=== PATIENT | male | born 1970 | race Caucasian/White ===

== ENCOUNTER 2018-01-12 22:15 | Inpatient (IN) | payer MEDICAID ==
[2018-01-12 23:25] LABS: URINE MICROSCOPIC INDICATED? YES; URINE SOURCE CLEAN C
[2018-01-12 23:30] LABS: URINE BILIRUBIN NEGATIVE (NEGATIVE); URINE BLOOD NEGATIVE (NEGATIVE); URINE GLUCOSE (UA) NEGATIVE (NEGATIVE); URINE KETONE NEGATIVE (NEGATIVE); URINE LEUKOCYTE ESTERASE NEGATIVE (NEGATIVE); URINE NITRATE NEGATIVE (NEGATIVE); URINE PROTEIN NEGATIVE (NEGATIVE); URINE UROBILINOGEN 0.2 E.U./dL (0.2 - 1.0)
[2018-01-12 23:47] LABS: AMPHETAMINE URINE NEGATIVE (NEGATIVE); BARBITURATES URINE NEGATIVE (NEGATIVE); BENZODIAZEPINES QUAL URINE NEGATIVE (NEGATIVE); CANNABINOID THC NEGATIVE (NEGATIVE); COCAINE METABOLITE QUAL URINE NEGATIVE (NEGATIVE); METHADONE URINE NEGATIVE (NEGATIVE); METHAMPHETAMINES QUAL URINE NEGATIVE (NEGATIVE); OPIATES (MORPHINE) QUAL. URINE POSITIVE (NEGATIVE); PHENCYCLIDINE (PCP) URINE NEGATIVE (NEGATIVE); TRICYCLICS (TCA) QUAL. URINE NEGATIVE (NEGATIVE)
[2018-01-12 23:55] LABS: ANION GAP 12.4 (7.0-16.0); CARBON DIOXIDE 21.7 mEq/L (21.0-31.0); CHLORIDE 109 mEq/L (98-107); POTASSIUM SERUM 4.1 mEq/L (3.5-5.1); SODIUM SERUM 139 mEq/L (136-145)
[2018-01-12 23:56] LABS: ALB/GLOB RATIO 1.3 (1.0-1.8); ALBUMIN 3.8 gm/dL (4.2-5.5); BILIRUBIN,TOTAL 0.8 mg/dL (0.3-1.0); BUN - UREA NITROGEN 8 mg/dL (7-25); CALCIUM SERUM 9.2 mg/dL (8.6-10.3); CREATININE - SERUM 0.8 mg/dL (0.7-1.3); GFR AFRICAN-AMERICAN > 60.0 ml/min (>90); GFR NON AFRICAN-AMERICAN > 60.0 ml/min; GLUCOSE 90 mg/dL (70-105); SGOT 35 U/L (13-39); SGPT/ALT 29 U/L (7-52); TOTAL PROTEIN,SERUM 6.8 gm/dL (6.0-8.3)
[2018-01-12 23:57] LABS: ALKALINE PHOSPHATASE 80 U/L (34-104)
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
[2018-01-13 00:26] LABS: HEMATOCRIT 47.6 % (41.0-60); HEMOGLOBIN 15.7 gm/dL (12-16); MEAN CORPUSCULAR HEMOGLOBIN 31.7 pg (26.0-30.0); MEAN CORPUSCULAR HGB CONC 33.1 pg (28.0-36.0); MEAN PLATELET VOLUME 7.7 fl; PLATELET COUNT 312 Th/cmm (150-400); RED BLOOD COUNT 4.96 Mil/cmm (4.30-5.70); RED CELL DISTRIBUTION WIDTH 13.5 % (11.5-20.0); WHITE BLOOD COUNT 6.8 Th/cmm (4.8-10.8)
[2018-01-13 00:54] LABS: URINE CLARITY CLEAR (CLEAR); URINE COLOR YELLOW
[2018-01-13 00:57] LABS: URINE BACTERIA NONE SEEN /hpf (NONE SEEN); URINE EPITHELIAL CELLS NONE SEEN /lpf (FEW); URINE RBC NONE SEEN /hpf (0-5); URINE WBC NONE SEEN /hpf (0-5)
[2018-01-13 01:32] LABS: % BASOPHILS 0.8 % (0.0-2.0); % EOSINOPHILS 6.3 % (0.0-5.0); % LYMPHOCYTES 22.1 % (20.0-50.0); % MONOCYTES 13.8 % (2.0-10.0); BASOPHILE ABSOLUTE 0.1 Th/cumm (0-0.2); EOSINOPHILE ABSOLUTE 0.4 Th/cmm (0.1-0.4); LYMPHOCYTE ABSOLUTE 1.5 Th/cmm (1.5-3.0); MONOCYTE ABSOLUTE 0.9 Th/cmm (0.3-1.0); NEUTROPHILE ABSOLUTE 3.7 Th/cmm (1.8-8.0)
[2018-01-13 01:35] LABS: LYMPHOCYTE 0 % (20-50)
[2018-01-13 05:05] VITALS: BP 161/99
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
== END 2018-01-13 07:55 | disposition left against medical advice (07) | DRG 930 ==
LOC: ER 22:15 → MSI 01-13 01:40
PROVIDERS: ADMIT General Practice; ATTEND General Practice
DX: S06.6X9A Traumatic subarachnoid hemorrhage with loss of consciousness of unspecified duration, initial encounter (principal); S22.43XA Multiple fractures of ribs, bilateral, initial encounter for closed fracture; I10 Essential (primary) hypertension; J44.9 Chronic obstructive pulmonary disease, unspecified; Y04.0XXA Assault by unarmed brawl or fight, initial encounter; Y93.89 Activity, other specified; Y92.89 Other specified places as the place of occurrence of the external cause; Y99.8 Other external cause status; Z88.1 Allergy status to other antibiotic agents; Z90.49 Acquired absence of other specified parts of digestive tract; Z88.0 Allergy status to penicillin; Z88.5 Allergy status to narcotic agent; Z88.8 Allergy status to other drugs, medicaments and biological substances
CPT/HCPCS: 36415-UA; 70450-TC; 80053-TC; 80307; 80320-TC; 81001-TC; 81003-TC; 84484-TC; 85007-TC; 85025-TC; Z7610